=== PATIENT | male | born 1965 | race Two or more races ===

== ENCOUNTER 2024-07-20 14:25 | Inpatient (IN) | payer OTHER ==
[~2024-07-20] VITALS: Ht 180.3 cm; Wt 107.1 kg
[2024-07-20] MEDS ORDERED: PANTOPRAZOLE SODIUM IV 80 MG in IV DEXTROSE 5% 500 ML IV ONE (14:45)
[2024-07-20] MEDS ORDERED: CEPH500C2 PO (14:56)
[2024-07-20] MEDS ORDERED: DOCU-141 PO (14:56)
[2024-07-20] MEDS ORDERED: BENA40TA8 PO (14:56)
[2024-07-20] MEDS ORDERED: ACET-2030 PO (14:56)
[2024-07-20] MEDS ORDERED: TRAM50TA2 PO (14:56)
[2024-07-20 15:04] LABS: CALCIUM 8.8 mg/dL (8.5-10.1); CARBON DIOXIDE 19 mmol/L (21-32); CHLORIDE 102 mmol/L (98-107); CREATININE 1.3 mg/dL (0.6-1.3); GLUCOSE 134 mg/dL (74-106); POTASSIUM 3.9 mmol/L (3.5-5.1); SODIUM SERUM 141 mmol/L (136-145); UREA NITROGEN, BLOOD 15 mg/dL (7-18)
[2024-07-20 15:11] LABS: ALANINE AMINOTRANSFERASE 38 U/L (16-63); ALBUMIN 3.5 g/dL (3.4-5.0); ALKALINE PHOSPHATASE 62 U/L (50-136); ASPARTATE AMINOTRANSFERASE 23 U/L (15-37); BILIRUBIN,DIRECT 0.1 mg/dL (0.0-0.2); BILIRUBIN,TOTAL 0.3 mg/dL (0.2-1.0); TOTAL PROTEIN, SERUM 7.1 g/dL (6.4-8.2)
[2024-07-20 15:12] LABS: BASOPHILS % (AUTO) 0.1 % (0.0-2.0); EOSINOPHILS % (AUTO) 0.1 % (0.0-7.0); HEMATOCRIT 36.3 % (36.7-47.1); HEMOGLOBIN 12.1 g/dL (12.5-16.3); LYMPHOCYTES % (AUTO) 5.5 % (20.5-51.5); MEAN CORPUSCULAR HEMOGLOBIN 29.3 uug (23.8-33.4); MEAN CORPUSCULAR HGB CONC 33 g/dL (32.5-36.3); MEAN CORPUSCULAR VOLUME 87.6 fL (73.0-96.2); MONOCYTES # (AUTO) 0.6 K/uL (0.1-1.30); MONOCYTES % (AUTO) 3.2 % (0.0-11.0); NEUTROPHILS # (AUTO) 17.2 K/uL (1.8-8.9); NEUTROPHILS % (AUTO) 91.1 % (38.5-71.5); PLATELET COUNT (AUTO) 235 K/uL (152-348); RED BLOOD CELL COUNT(AUTO) 4.14 MIL/uL (4.06-5.63); RED CELL DISTRIBUTION WIDTH 14.1 % (12.1-16.2); WHITE BLOOD COUNT (AUTO) 18.9 K/uL (3.6-10.2)
[2024-07-20 15:13] LABS: DIFFERENTIAL COMMENT 1
[2024-07-20] MEDS: PANTOPRAZOLE SODIUM IV 80 MG in IV DEXTROSE 5% 100 ML IV ONE (15:15)
[2024-07-20 15:19] LABS: LIPASE 34 U/L (16-77)
[2024-07-20] MEDS: IV NORMAL SALINE 1000 ML BAG IV ONE (16:51)
[2024-07-20] MEDS ORDERED: REMEDY ESSENTIAL ZINC PASTE 113 GM TP PRN (18:30)
[2024-07-20] MEDS ORDERED: MAGNESIUM HYDROXIDE 30 ML LIQUID UDC PO PRN (18:30)
[2024-07-20] MEDS ORDERED: ONDANSETRON 4 MG/2 ML VIAL IV PRN (18:30)
[2024-07-20] MEDS ORDERED: HYDROMORPHONE 1 MG/1 ML DISP.SYRIN IV PRN (18:30)
[2024-07-20] MEDS: PIPERACILLIN SODIUM/TAZOBACTAM 3.375 G in IV DEXTROSE 5% 50 ML IV SCH (19:37)
[2024-07-20] MEDS ORDERED: PIPERACILLIN/TAZOBACTAM/D5W 50 ML IV ONE (21:46)
[2024-07-20] MEDS: PANTOPRAZOLE SODIUM 40 MG VIAL IV SCH (21:48)
[2024-07-20 22:10] VITALS: BP 146/76; TEMP 98.8; O2SAT 96
[2024-07-20] MEDS: IV NS 1000 ML 1,000 ML IV PRN (22:15)
[2024-07-21] VITALS (7 sets, daily range): BP systolic 136–149; BP diastolic 65–84; TEMP 98.1–99.6; O2SAT 95–97
[2024-07-21] MEDS ORDERED: PIPERACILLIN SODIUM/TAZOBACTAM 3.375 G in IV DEXTROSE 5% 50 ML IV SCH
[2024-07-21] MEDS ORDERED: PIPERACILLIN/TAZOBACTAM/D5W 50 ML IV ONE (04:37)
[2024-07-21 06:48] LABS: CALCIUM 8.9 mg/dL (8.5-10.1); CREATININE 1.3 mg/dL (0.6-1.3); MAGNESIUM 2.2 mg/dL (1.8-2.4); PHOSPHOROUS 4.3 mg/dL (2.5-4.9); POTASSIUM 4.4 mmol/L (3.5-5.1)
[2024-07-21 06:55] LABS: HEMATOCRIT 32.9 % (36.7-47.1); HEMOGLOBIN 11.3 g/dL (12.5-16.3); LYMPHOCYTES % (AUTO) 7.4 % (20.5-51.5); MEAN CORPUSCULAR HGB CONC 34 g/dL (32.5-36.3); MEAN CORPUSCULAR VOLUME 87.5 fL (73.0-96.2); MONOCYTES # (AUTO) 1.2 K/uL (0.1-1.30); MONOCYTES % (AUTO) 8.4 % (0.0-11.0); NEUTROPHILS # (AUTO) 11.7 K/uL (1.8-8.9); NEUTROPHILS % (AUTO) 84.2 % (38.5-71.5); PLATELET COUNT (AUTO) 206 K/uL (152-348); RED BLOOD CELL COUNT(AUTO) 3.76 MIL/uL (4.06-5.63); RED CELL DISTRIBUTION WIDTH 14.1 % (12.1-16.2); WHITE BLOOD COUNT (AUTO) 13.9 K/uL (3.6-10.2)
[2024-07-21 07:10] LABS: DIFFERENTIAL COMMENT 1
[2024-07-21] MEDS: BENAZEPRIL HCL 20 MG TABLET PO SCH (08:40)
[2024-07-21] MEDS: PIPERACILLIN SODIUM/TAZOBACTAM 3.375 G in IV DEXTROSE 5% 100 ML IV SCH (14:14)
[2024-07-21] MEDS ORDERED: EPINEPHRINE 1:10,000 1 MG/10 ML DISP.SYRIN ONE (16:35)
[2024-07-22] VITALS: BP 143/76; TEMP 99.7; O2SAT 97
[2024-07-22 04:00] VITALS: BP 111/65; TEMP 98.1; O2SAT 97
[2024-07-22 06:35] LABS: BASOPHILS # (AUTO) 0.1 K/UL (0.0-0.2); BASOPHILS % (AUTO) 0.4 % (0.0-2.0); HEMATOCRIT 32.5 % (36.7-47.1); HEMOGLOBIN 11.1 g/dL (12.5-16.3); LYMPHOCYTES # (AUTO) 2.2 K/uL (0.8-4.8); LYMPHOCYTES % (AUTO) 17.5 % (20.5-51.5); MEAN CORPUSCULAR HGB CONC 34 g/dL (32.5-36.3); MONOCYTES # (AUTO) 1.1 K/uL (0.1-1.30); MONOCYTES % (AUTO) 8.5 % (0.0-11.0); NEUTROPHILS # (AUTO) 9.4 K/uL (1.8-8.9); NEUTROPHILS % (AUTO) 73.6 % (38.5-71.5); PLATELET COUNT (AUTO) 204 K/uL (152-348); RED BLOOD CELL COUNT(AUTO) 3.69 MIL/uL (4.06-5.63); WHITE BLOOD COUNT (AUTO) 12.8 K/uL (3.6-10.2)
[2024-07-22 06:46] LABS: CALCIUM 8.7 mg/dL (8.5-10.1); CREATININE 1.1 mg/dL (0.6-1.3); POTASSIUM 4.1 mmol/L (3.5-5.1)
[2024-07-22 06:52] LABS: DIFFERENTIAL COMMENT 1
[2024-07-22 07:45] VITALS: BP 145/72; TEMP 98.8
[2024-07-22 16:00] VITALS: BP 148/85; TEMP 98.8; O2SAT 98
[2024-07-22] MEDS ORDERED: AMLO10TA59 PO (19:07)
[2024-07-22 20:00] VITALS: BP 129/71; TEMP 98.4; O2SAT 98
[2024-07-23] VITALS: BP 135/82; TEMP 100; O2SAT 96
[2024-07-23] MEDS: ACETAMINOPHEN 325 MG TABLET PO PRN (00:30)
[2024-07-23 04:00] VITALS: BP 145/72; TEMP 98.9
[2024-07-23 06:56] LABS: BASOPHILS % (AUTO) 0.3 % (0.0-2.0); EOSINOPHILS # (AUTO) 0.1 K/uL (0.0-0.7); EOSINOPHILS % (AUTO) 0.5 % (0.0-7.0); HEMATOCRIT 33.1 % (36.7-47.1); HEMOGLOBIN 11.3 g/dL (12.5-16.3); LYMPHOCYTES # (AUTO) 2.5 K/uL (0.8-4.8); LYMPHOCYTES % (AUTO) 23.1 % (20.5-51.5); MEAN CORPUSCULAR HEMOGLOBIN 30.3 uug (23.8-33.4); MEAN CORPUSCULAR HGB CONC 34 g/dL (32.5-36.3); MEAN CORPUSCULAR VOLUME 88.3 fL (73.0-96.2); MONOCYTES % (AUTO) 9.5 % (0.0-11.0); NEUTROPHILS # (AUTO) 7.2 K/uL (1.8-8.9); NEUTROPHILS % (AUTO) 66.6 % (38.5-71.5); PLATELET COUNT (AUTO) 209 K/uL (152-348); RED BLOOD CELL COUNT(AUTO) 3.74 MIL/uL (4.06-5.63); WHITE BLOOD COUNT (AUTO) 10.8 K/uL (3.6-10.2)
[2024-07-23 07:04] LABS: DIFFERENTIAL COMMENT 1
[2024-07-23 07:05] LABS: CALCIUM 8.6 mg/dL (8.5-10.1); POTASSIUM 3.7 mmol/L (3.5-5.1)
[2024-07-23 07:24] VITALS: BP 133/71; TEMP 98.2; O2SAT 98
[2024-07-23 11:14] VITALS: BP 145/69; TEMP 98.4; O2SAT 98
[2024-07-23] MEDS: AMLODIPINE 10 MG TABLET PO SCH (11:58)
[2024-07-23 15:22] VITALS: BP 134/71; TEMP 98.4; O2SAT 96
[2024-07-23] MEDS: PANTOPRAZOLE SODIUM 40 MG TABLET.DR PO SCH (16:05)
[2024-07-23 19:15] VITALS: BP 148/77; TEMP 97.8; O2SAT 97
[2024-07-24] VITALS (9 sets, daily range): BP systolic 124–139; BP diastolic 61–93; TEMP 97.6–99.5; O2SAT 94–99
[2024-07-24 06:47] LABS: BASOPHILS % (AUTO) 0.3 % (0.0-2.0); EOSINOPHILS # (AUTO) 0.1 K/uL (0.0-0.7); EOSINOPHILS % (AUTO) 1.4 % (0.0-7.0); HEMATOCRIT 31.4 % (36.7-47.1); HEMOGLOBIN 11.2 g/dL (12.5-16.3); LYMPHOCYTES # (AUTO) 2.2 K/uL (0.8-4.8); LYMPHOCYTES % (AUTO) 26.3 % (20.5-51.5); MEAN CORPUSCULAR HEMOGLOBIN 30.6 uug (23.8-33.4); MEAN CORPUSCULAR HGB CONC 36 g/dL (32.5-36.3); MEAN CORPUSCULAR VOLUME 86.1 fL (73.0-96.2); MONOCYTES # (AUTO) 0.6 K/uL (0.1-1.30); MONOCYTES % (AUTO) 7.4 % (0.0-11.0); NEUTROPHILS # (AUTO) 5.5 K/uL (1.8-8.9); NEUTROPHILS % (AUTO) 64.6 % (38.5-71.5); PLATELET COUNT (AUTO) 206 K/uL (152-348); RED BLOOD CELL COUNT(AUTO) 3.65 MIL/uL (4.06-5.63); RED CELL DISTRIBUTION WIDTH 13.6 % (12.1-16.2); WHITE BLOOD COUNT (AUTO) 8.5 K/uL (3.6-10.2)
[2024-07-24 06:56] LABS: CALCIUM 8.5 mg/dL (8.5-10.1); CREATININE 0.9 mg/dL (0.6-1.3); POTASSIUM 3.6 mmol/L (3.5-5.1)
[2024-07-25 00:35] VITALS: O2SAT 97
[2024-07-25 05:28] VITALS: BP 132/80; TEMP 97.8; O2SAT 97
[2024-07-25 08:07] VITALS: BP 145/84
[2024-07-25] MEDS ORDERED: AMOX-427 PO (09:29)
== END 2024-07-25 11:00 | disposition home or self-care (01) | DRG 377 ==
LOC: ER 14:25 → TELE3 21:05 → MEDSURG3 07-24 10:16
PROVIDERS: ADMIT Nurse Practitioner Acute Care; ATTEND Nurse Practitioner Acute Care
PROC: 0D9670Z Drainage of Stomach with Drainage Device, Via Natural or Artificial Opening (ICD-10-PCS; 2024-07-20)
PROC: 05HC33Z Insertion of Infusion Device into Left Basilic Vein, Percutaneous Approach (ICD-10-PCS; principal; 2024-07-22)
PROC: 0DJ08ZZ Inspection of Upper Intestinal Tract, Via Natural or Artificial Opening Endoscopic (ICD-10-PCS; 2024-07-22)
DX: K29.71 Gastritis, unspecified, with bleeding (principal); J69.0 Pneumonitis due to inhalation of food and vomit; D62 Acute posthemorrhagic anemia; K21.01 Gastro-esophageal reflux disease with esophagitis, with bleeding; E66.9 Obesity, unspecified; Z68.32 Body mass index [BMI] 32.0-32.9, adult; N20.0 Calculus of kidney; E78.5 Hyperlipidemia, unspecified; K76.0 Fatty (change of) liver, not elsewhere classified; I10 Essential (primary) hypertension; K40.90 Unilateral inguinal hernia, without obstruction or gangrene, not specified as recurrent; Z98.890 Other specified postprocedural states; N40.0 Benign prostatic hyperplasia without lower urinary tract symptoms
CPT/HCPCS: 36415; 71045; 83690; 83735; 84100; 84484; 85025; 85730; 86850; 86900; 86901; G0378; J0171; J2470; J2543; J7040; J7060